=== PATIENT | female | born 1965 | race Caucasian/White ===

== ENCOUNTER 2017-06-07 15:43 | Emergency (ER) | payer OTHER ==
[~2017-06-07] VITALS: Ht 157.5 cm; Wt 55.6 kg
[2017-06-07 15:44] VITALS: BP 131/68
[2017-06-07] MEDS ORDERED: DERMABOND TOPICAL SKIN ADHESIVE TOP ONE (17:45)
== END 2017-06-07 17:52 | disposition home or self-care (01) ==
LOC: M ED 15:43
DX: S01.81XA Laceration without foreign body of other part of head, initial encounter (principal); W22.8XXA Striking against or struck by other objects, initial encounter; Y92.219 Unspecified school as the place of occurrence of the external cause; Y93.9 Activity, unspecified; Y99.0 Civilian activity done for income or pay; Z88.2 Allergy status to sulfonamides